=== PATIENT | male | born 1945 | race Caucasian/White ===

== ENCOUNTER 2025-06-04 20:16 | Outpatient (CLI) | payer MEDICARE, SELFPAY | END 2025-06-04 20:17 | disposition home or self-care (01) | LOC: SLEEP 20:22 | PROVIDERS: Visit Provider Family Medicine | DX: G47.33 Obstructive sleep apnea (adult) (pediatric) (principal); G47.10 Hypersomnia, unspecified | CPT/HCPCS: 95810 ==